=== PATIENT | male | born 1985 | race African-American/Black ===

== ENCOUNTER 2021-06-25 08:00 | Outpatient (RCR) | payer OTHER, SELFPAY ==
--- NOTE | 2021-03-26 15:12 | MHC.PT.EP ---
[facility] [place] [facility] [place] [facility] [place] [facility] [address] Arlette Tai [address] [phone] F: [phone] F: [phone] F: [phone] F: [phone] Physical Therapy Plan of Care Date of Evaluation: Date of Surgery: Diagnosis: patella tendonitis Assessment: 35 y/o male referred to PT with patella tendonitis. S/s consistent with diagnosis and ?PFPS as well resulting in pain and difficulty with running > 1/4 mile, squatting, stairs, and exercise regime secondary to decreased knee/hip strength, impaired mechanics on step down and squat, increased pain and tenderness patella ligament/ joint line, and decreased HS/quad length. Recommend PT 2x/week for 5 week to address impairments, implement HEP, and optimize functional mobility. Frequency and Duration: The patient will be seen 2x/week for 5 weeks Short Term Goals: 3 weeks 1. I with HEP 2. Pt will improve L HS strength by one MMT grade to facilitate stairs [employer] Goals: 5 weeks 1. I with HEP and self management of sx 2. Pt will be able to descend stairs with knee pain < 2/10 3. Pt will be able to run > 2 miles with pain < 3/10 Treatment Plan: Modalities to reduce pain, spasms and effusion. Manual therapy to restore motion and function. Therapeutic exercise to improve strength and flexibility. Neuromuscular re-education for posture and balance. Therapeutic activities to return to functional activities of daily living. Electronically signed by: Trisha Argueta PT Please sign and return to therapist. Thank you for your referral.
--- NOTE | 2021-07-13 11:25 | MHC.PT.DC ---
[facility] [place] Office [place] Office [place] Office [address] Arlette Tai [address] [phone] F: [phone] F: [phone] F: [phone] F: [phone] Physical Therapy Discharge Report Diagnosis: patella tendonitis Date of Surgery: Date of Evaluation: 03/26/21 Date of Discharge: 07/13/21 Treatments to Date: 13 Cancellations to Date: 5 No Shows to Date: 4 Discharge Status: Achieved Goals Improved Function Independent with HEP Visit Non-compliance Discharge Summary: Pt appropriate for d/c secondary to improved L knee function with all recreational and occupational duties. Pt was able to progress to functional exercises that challenged L SL stance and demonstrated improved L knee tracking and control. STGs and LTGs met; pt reports he is able to participate in 2 mile runs with <2/10 pain. Electronically signed by: Trisha Argueta PT Please sign and return to therapist. Thank you for your referral.
== END 2021-07-13 11:25 | disposition home or self-care (01) ==
LOC: HO.PTCHIC 08:00
PROVIDERS: PCP Internal Medicine; Visit Provider Orthopaedic Surgery
DX: M76.50 Patellar tendinitis, unspecified knee (principal)
CPT/HCPCS: 97033; 97110; 97161; 97530

== ENCOUNTER 2021-10-18 08:03 | Outpatient (REF) | payer OTHER, SELFPAY ==
--- NOTE | ~2021-10-18 | XR_ITS ---
EXAMINATION: XR SHOULDER, RIGHT CLINICAL INFORMATION: Neck pain. COMPARISON: None TECHNIQUE: 4 views. of the right shoulder. FINDINGS: The bones and soft tissues are normal. No fracture. Glenohumeral and acromioclavicular alignment is anatomic with normal joint space. No abnormal soft tissue calcifications. XR/XR shoulder RT min 2V IMPRESSION: Normal right shoulder.
--- NOTE | ~2021-10-18 | XR_ITS ---
EXAMINATION: XR CERVICAL SPINE CLINICAL INFORMATION: Cervicalgia COMPARISON: None TECHNIQUE: 3 views of the cervical spine were obtained. FINDINGS: There are no prevertebral soft tissue or bony abnormalities demonstrated. No compression fractures or subluxations are identified. Alignment is maintained at the atlanto-axial articulation. The disc spaces are preserved. No endplate changes are seen. The prevertebral soft tissues are normal. XR/XR cervical spine 3V IMPRESSION: Unremarkable examination.
== END 2021-10-18 08:04 | disposition home or self-care (01) ==
LOC: HO.HMGCX 08:03
PROVIDERS: PCP Internal Medicine; Visit Provider Internal Medicine
DX: M54.2 Cervicalgia (principal); M54.12 Radiculopathy, cervical region; M25.511 Pain in right shoulder
CPT/HCPCS: 72040; 73030

== ENCOUNTER → 2021-11-23 09:46 | Outpatient (BNVA) | payer OTHER, SELFPAY | PROVIDERS: PCP Internal Medicine; Visit Provider Orthopaedic Surgery | DX: M54.12 Radiculopathy, cervical region (principal); M25.511 Pain in right shoulder; M54.2 Cervicalgia | CPT/HCPCS: 99202 ==

== ENCOUNTER 2021-12-06 08:38 | Outpatient (REF) | payer OTHER, SELFPAY ==
--- NOTE | 2021-12-06 08:41 | EMG_ITS ---
Right median and ulnar motor and sensory studies were performed. Right radial sensory study was performed. Medial and lateral antecubital sensory studies were performed and paraspinal muscles were tested with a needle. IMPRESSION: 1. Mild right median neuropathy across carpal tunnel affecting motor component. 2. Mild right ulnar neuropathy across cubital tunnel. 3. No evidence of a proximal neuropathy or radiculopathy or plexopathy. MD YESSENIA Jerome/RUCHI / [id number]
== END 2021-12-06 08:39 | disposition home or self-care (01) ==
LOC: HO.NEURO 08:38
PROVIDERS: PCP Internal Medicine; Visit Provider Internal Medicine
DX: M54.12 Radiculopathy, cervical region (principal)
CPT/HCPCS: 95886; 95910

== ENCOUNTER 2021-12-13 07:20 | Outpatient (REF) | payer OTHER, SELFPAY ==
--- NOTE | ~2021-12-13 | MR_ITS ---
EXAMINATION: MR CERVICAL SPINE WITHOUT CONTRAST CLINICAL INFORMATION: Cervical radiculopathy. COMPARISON: Cervical spine radiographs from 10/18/2021. TECHNIQUE: MRI of the cervical spine was obtained using routine sequences without contrast. FINDINGS: Normal anatomic alignment. Moderate degenerative disc disease from C4-C7 and mild degenerative disc disease from C2-C4 with partial loss of disc height and desiccation. Normal, homogeneous marrow signal throughout. No suspicious marrow edema. The vertebral body heights are largely maintained. The spinal cord is normal in appearance. Limited evaluation of the soft tissues of the neck without demonstrated abnormalities. The flow voids of the major cervical vessels are maintained. Normal appearance of the cervicomedullary junction and visualized posterior fossa. SPINAL LEVELS: C2-C3: Mild disc-osteophyte complex. There is no uncovertebral joint arthropathy. There is mild bilateral facet joint arthropathy. There is no neural foraminal stenosis. There is no spinal canal stenosis. C3-C4: Mild disc-osteophyte complex. There is no uncovertebral joint arthropathy. There is mild bilateral facet joint arthropathy. There is no neural foraminal stenosis. There is no spinal canal stenosis. C4-C5: Moderate disc-osteophyte complex. There is mild bilateral uncovertebral joint arthropathy. There is moderate bilateral facet joint arthropathy. There is mild bilateral neural foraminal stenosis. There is no spinal canal stenosis. C5-C6: Moderate disc-osteophyte complex. There is moderate right worse than left uncovertebral joint arthropathy. There is moderate bilateral facet joint arthropathy. There is moderate right worse than left neural foraminal stenosis. There is no spinal canal stenosis. C6-C7: Moderate disc-osteophyte complex. There is moderate bilateral uncovertebral joint arthropathy. There is mild bilateral facet joint arthropathy. There is mild bilateral neural foraminal stenosis. There is no spinal canal stenosis. C7-T1: Normal annular contour. There is no uncovertebral joint arthropathy. There is mild bilateral facet joint arthropathy. There is no neural foraminal stenosis. There is no spinal canal stenosis. MR/MR cervical spine wo con IMPRESSION: Mild to moderate multilevel degenerative spondyloarthropathy of the cervical spine as described in detail above. Most notably, there are moderate neural foraminal stenoses at C5-C6. Mild neural foraminal stenoses at C4-C5 and C6-C7. No overt spinal canal stenosis.
== END 2021-12-13 07:21 | disposition home or self-care (01) ==
LOC: HO.MRI 07:20
PROVIDERS: Visit Provider Orthopaedic Surgery
DX: M54.12 Radiculopathy, cervical region (principal); M25.511 Pain in right shoulder; M54.2 Cervicalgia
CPT/HCPCS: 72141

== ENCOUNTER → 2022-01-25 09:54 | Outpatient (BNVA) | payer OTHER, SELFPAY | PROVIDERS: PCP Internal Medicine; Visit Provider Internal Medicine | DX: M54.12 Radiculopathy, cervical region (principal); M25.511 Pain in right shoulder | CPT/HCPCS: 99202 ==

== ENCOUNTER 2022-05-14 07:00 | Outpatient (RCR) | payer OTHER, SELFPAY ==
--- NOTE | 2022-02-27 14:46 | MHC.PT.EP ---
[facility] [place] Office [place] Office [place] Office [address] Arlette Tai [address] [phone] F: [phone] F: [phone] F: [phone] F: [phone] Physical Therapy Plan of Care Date of Evaluation: Date of Surgery: Diagnosis: radiculopathy, cervical region Assessment: Patient is a 36 year old R handed male who presents with s/s consistent with radiculopathy, cervical pain. He believes the injury started with cutting a branch down last summer. 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 He also has a physical fitness test to perform as well. Patient past medical history is unremarkable. He also has no surgical history. Current impairments include pain, posture, ROM, strength, activity tolerance and functional mobility. Functional limitations include decreased ability to lift, carry, push, pull, sleep, turn head, and perform weight bearing and strenuous UE activities. Patient is motivated with good rehab potential. Skilled PT will address impairments and functional limitations in order to achieve goals. Frequency and Duration: The patient will be seen 2x/week for 5 weeks Short Term Goals: I with HEP - 2 weeks min pec tightness - 3 weeks Half-Way Goals: NPDI 10% or less - 5 weeks centralized s/s - 5 weeks resume all UE activities pain free - 5 weeks Treatment Plan: Modalities to reduce pain, spasms and effusion. Manual therapy to restore motion and function. Therapeutic exercise to improve strength and flexibility. Neuromuscular re-education for posture and balance. Therapeutic activities to return to functional activities of daily living. Electronically signed by: Gio Ruiz, PT Please sign and return to therapist. Thank you for your referral.
--- NOTE | 2022-08-08 10:13 | MHC.PT.DC ---
[facility] [place] Office [place] Office [place] Office [address] Arlette Tai [address] [phone] F: [phone] F: [phone] F: [phone] F: [phone] Physical Therapy Discharge Report Diagnosis: radiculopathy, cervical region Date of Surgery: Date of Evaluation: 02/27/22 Date of Discharge: 05/20/22 Treatments to Date: 12 Cancellations to Date: No Shows to Date: Discharge Status: Improved Function Independent with HEP Discharge Summary: 05/14/22: pt with significantly less tissue tension, min pec tightness. I with HEP, NPDI 10%. Pt progressed towards or met all goals. Appropriate to d/c to HEP at this time. Electronically signed by: Gio Ruiz, PT Please sign and return to therapist. Thank you for your referral.
== END 2022-08-08 10:13 | disposition home or self-care (01) ==
LOC: HO.PTCHIC 07:00
PROVIDERS: PCP Internal Medicine; Visit Provider Internal Medicine
DX: M54.12 Radiculopathy, cervical region (principal)
CPT/HCPCS: 97110; 97140; 97161